=== PATIENT | female | born 1985 | race Caucasian/White ===

== ENCOUNTER 2016-10-26 10:23 | Day surgery (SDC) ==
[2016-10-26] MEDS ORDERED: LR 1,000 ML ONE (11:00)
[2016-10-26] MEDS ORDERED: REGLAN ONE (11:00)
[2016-10-26] MEDS ORDERED: PEPCID ONE (11:00)
[2016-10-26] MEDS ORDERED: XYLOCAINE 1% ONE (12:31)
[2016-10-26] MEDS ORDERED: MONSEL SOLUTION TOP ONE (12:45)
[2016-10-26] MEDS ORDERED: PITRESSIN INJ ONE (12:45)
[2016-10-26] MEDS ORDERED: FENTANYL ONE (13:39)
[2016-10-26] MEDS ORDERED: DIPRIVAN 1% ONE (13:40)
[2016-10-26] MEDS ORDERED: TORADOL ONE ×2 (13:52→14:44)
[2016-10-26] MEDS ORDERED: DECADRON ONE (13:56)
[2016-10-26] MEDS ORDERED: ZOFRAN ONE (13:56)
[2016-10-26] MEDS ORDERED: XYLOCAINE-MPF 2% ONE (13:56)
[2016-10-26 15:01] VITALS: BP 142/71
--- NOTE | 2016-10-27 07:09 | OPERATIVE NOTE ---
PROCEDURE DATE: 10/26/2016 PREOPERATIVE DIAGNOSIS: Cervical intraepithelial neoplasia 2. POSTOPERATIVE DIAGNOSIS: Cervical intraepithelial neoplasia 2. PROCEDURE: LEEP. SURGEON: Dr. Wanda Duran. ANESTHESIA: General. TECHNIQUE: The patient was seen in the preoperative holding area where informed consent was reviewed. The patient agreed to proceed with planned procedure. The patient was taken to OR #10. Patient was placed in the dorsal supine lithotomy position. Time-out was held. Patient was placed under general anesthesia. Patient was draped and prepped in the normal sterile fashion. A sterile speculum was inserted into the vagina with good visualization of the cervix. Lugol's staining was placed over the cervix with decreased stain uptake at the 11 o'clock position. The loop cautery was used to obtain cervical cone. The ball cautery was used for good hemostasis. Good hemostasis was noted. All instruments were removed. Patient was awakened from anesthesia without complication. All counts were correct x2. Patient was taken to the PACU in stable condition. ESTIMATED BLOOD LOSS: 0 mL. COMPLICATIONS: None.
--- NOTE | 2016-10-27 16:57 | DISCHARGE SUMMARY ---
ADMISSION DATE: 10/26/2016 DISCHARGE DATE: 10/26/2016 PREOPERATIVE DIAGNOSIS: LASHAE-II. POSTOPERATIVE DIAGNOSIS: LASHAE-II. PROCEDURE: Date 10/26/2016. Procedure LEEP. SURGEON: Dr. Wanda Duran. ANESTHESIA: General. DISCHARGE EXAM: General: No acute distress. Alert. Pelvic: No blood. FINDINGS: Decreased staining uptake at the 11 o'clock position. IMPRESSION: Likely mild dysplasia. DISPOSITION: Home. FOLLOWUP: With Dr. Duran in 4 weeks.
== END 2016-10-26 15:06 | disposition home or self-care (01) ==
LOC: OR 10:23
PROVIDERS: ATTEND Student in an Organized Health Care Education/Training Program
DX: N87.1 Moderate cervical dysplasia (principal); Z85.3 Personal history of malignant neoplasm of breast; F17.210 Nicotine dependence, cigarettes, uncomplicated
CPT/HCPCS: 84702; 88307; J1100; J1885; J2405; J3010; J7120

== ENCOUNTER 2019-08-14 05:11 | Day surgery (SDC) ==
[2019-08-07 15:40] LABS: URINE SOURCE CLEAN CATCH
[2019-08-07 15:44] LABS: BILIRUBIN URINE NEGATIVE (NEGATIVE); BLOOD URINE NEGATIVE (NEGATIVE); COLOR YELLOW; GLUCOSE URINE NEGATIVE (NEGATIVE); HEMATOCRIT 42.1 % (37.0-47.0); HEMOGLOBIN 14.2 g/dL (12.0-16.0); KETONE URINE NEGATIVE (NEGATIVE); LEUKOCYTES URINE NEGATIVE (NEGATIVE); MCH 30.7 PG (27-31); MCHC 33.7 g/dL (33-37); MCV 90.9 FL (81-99); MPV 10.4 FL (7.4-10.4); NITRITE URINE NEGATIVE (NEGATIVE); PH URINE 6.5; PROTEIN URINE NEGATIVE (NEGATIVE); RBC 4.63 XMIL (4.2-5.4); RDW 13.2 % (11.5-14.5); SP GRAVITY URINE 1.023; TURBIDITY URINE CLEAR (CLEAR); UROBILINOGEN URINE NORMAL (NORMAL); WBC 8.43 X1000 (4.8-10.8)
[2019-08-07 15:46] LABS: UR EPITHELIAL CELLS <10 /HPF (<10); URINE BACTERIA NEGATIVE /HPF; URINE RBC <10 /HPF (<10); URINE WBC <10 /HPF (<10)
[2019-08-14 12:50] LABS: BILIRUBIN URINE NEGATIVE (NEGATIVE); BLOOD URINE NEGATIVE (NEGATIVE); COLOR YELLOW; GLUCOSE URINE NEGATIVE (NEGATIVE); KETONE URINE NEGATIVE (NEGATIVE); LEUKOCYTES URINE NEGATIVE (NEGATIVE); NITRITE URINE NEGATIVE (NEGATIVE); PROTEIN URINE NEGATIVE (NEGATIVE); SP GRAVITY URINE 1.018; TURBIDITY URINE CLEAR (CLEAR); UROBILINOGEN URINE NORMAL (NORMAL)
[2019-08-14 12:51] LABS: UR EPITHELIAL CELLS <10 /HPF (<10); URINE BACTERIA NEGATIVE /HPF; URINE RBC <10 /HPF (<10); URINE WBC <10 /HPF (<10)
[2019-08-14 13:19] LABS: URINE SOURCE CATH
[2019-08-15 12:00] VITALS: BP 91/57
== END 2019-08-15 14:09 | disposition home or self-care (01) ==
LOC: 4N 05:11 → PAT 05:11 → OPS 05:11
PROVIDERS: ATTEND Surgery Plastic and Reconstructive Surgery